=== PATIENT | female | born 1990 | race Two or more races ===

== ENCOUNTER → 2016-12-13 | Outpatient (REF) | payer OTHER | LOC: M SFHCLERA 12:12 | PROVIDERS: ATTEND Nurse Practitioner Family | DX: J02.9 Acute pharyngitis, unspecified (principal) ==

== ENCOUNTER 2017-02-05 17:01 | Emergency (ER) | payer OTHER ==
[~2017-02-05] VITALS: Ht 170.2 cm; Wt 77.1 kg
[2017-02-05 17:13] VITALS: BP 143/103
[2017-02-05] MEDS ORDERED: NORCO, ANEXSIA 5/325MG TABLET (HYDROcodone/ACETAMINOPHEN) PO ONE (17:45)
--- NOTE | 2017-02-05 18:51 | REP ---
LEFT HUMERUS, TWO VIEWS: HISTORY: Trauma. There is no acute fracture or dislocation. The joint spaces are normal in appearance. IMPRESSION: There is no acute fracture or dislocation. Signed by Barrie Quinonez MD 02/05/2017 06:52 P
[2017-02-05] MEDS ORDERED: IBUP80TA PO (18:59)
--- NOTE | 2017-02-05 19:11 | REP ---
LUMBAR SPINE, FIVE VIEWS: HISTORY: Trauma. There is no acute fracture or subluxation. The intervertebral discs are normal in height. The facet joints are normal in appearance. IMPRESSION: There is no acute fracture or dislocation. Signed by Barrie Quinonez MD 02/05/2017 07:12 P
--- NOTE | 2017-02-05 19:12 | REP ---
LEFT FOREARM, TWO VIEWS: HISTORY: Trauma. There is no acute fracture or dislocation. The joint spaces are normal in appearance. IMPRESSION: There is no acute fracture or dislocation. Signed by Barrie Quinonez MD 02/05/2017 07:21 P
== END 2017-02-05 19:07 | disposition home or self-care (01) ==
LOC: EDBD 17:01 → M ED 17:36
DX: S50.02XA Contusion of left elbow, initial encounter (principal); Y04.0XXA Assault by unarmed brawl or fight, initial encounter; Y92.019 Unspecified place in single-family (private) house as the place of occurrence of the external cause; Y93.89 Activity, other specified; Y99.8 Other external cause status